=== PATIENT | female | born 1980 | race Two or more races ===

== ENCOUNTER 2025-07-22 21:11 | Emergency (ER) | payer MEDICAID, OTHER ==
[~2025-07-22] VITALS: Ht 167.6 cm; Wt 105.3 kg
--- NOTE | 2025-07-22 21:56 | ED.PDOC ---
Musculoskeletal HPI Comments 45-year-old female who came to ER for left foot pain. Patient has history of diabetes. She was having a pedicure, when she accidentally nicked her left great toe. Shortly afterwards noted pain and swelling and discoloration of the left great toe. No fever noted Chief Complaint: Lower Extremity Time Seen by MD: 21:55 Reviewed Notes: Nurses Notes Allergies: Coded Allergies: NO KNOWN ALLERGIES (Unverified , 07/22/25) Home Meds Active Scripts Mupirocin Calcium (Topical) (MUPIROCIN) 2 % Cre, 2 % EX BID for 10 Days, #100 CRE Prov:CHINO FRANZ MD 07/22/25 Sulfamethoxazole W/Trimethopri (Bactrim Ds Tablet) 1 Tab Tb, 1 TAB PO BID for 10 Days, #20 TAB Prov:CHINO FRANZ MD 07/22/25 Information Source: Patient Mode of Arrival: Ambulatory Location: Left Extremity Location: Great Toe Timing: Days Past Medical History PAST MEDICAL HISTORY: DM Surgical History: Denies all surgeries [employer] History: Denies all [employer]MAN Hx Family History Family History: Reviewed,noncontributory to illness Social History Smoker: Non-Smoker Alcohol: Denies ETOH Use Drugs: Denies Drug Use Lives In: Home Constitutional: denies: chills, diaphoresis, fatigue, fever, malaise, sweats, weakness, others EENTM: denies: blurred vision, double vision, ear bleeding, ear discharge, ear drainage, ear pain, ear ringing, eye pain, eye redness, hearing loss, mouth pain, mouth swelling, nasal discharge, nose bleeding, nose congestion, nose pain, photophobia, tearing, throat pain, throat swelling, voice changes, others Respiratory: denies: cough, hemoptysis, orthopnea, SOB at rest, shortness of breath, SOB with excertion, stridor, wheezing, others Cardiovascular: denies: chest pain, dizzy spells, diaphoresis, Dyspnea on exe rtion, edema, irregular heart beat, left arm pain, lightheadedness, palpitations, PND, syncope, others Gastrointestinal: denies: abdomen distended, abdominal pain, blood streaked bowels, constipated, diarrhea, dysphagia, difficulty swallowing, hematemesis, melena, nausea, poor appetite, poor fluid intake, rectal bleeding, rectal pain, vomiting, others Genitourinary: denies: abnormal vagina bleeding, burning, dyspareunia, dysuria, flank pain, frequency, hematuria, incontinence, pain, , vagina discharge, urgency, others Neurological: denies: dizziness, fainting, headache, left sided numbness, left sided weakness, numbness, paresthesia, pre-existing deficit, right sided numbness, right sided weakness, seizure, speech problems, tingling, tremors, weakness, others Musculoskeletal: reports: others (Left great toe swelling and discoloration); denies: back pain, gout, joint pain, joint swelling, muscle pain, muscle stiffness, neck pain Integumetry: denies: bruises, change in color, change in hair/nails, dryness, laceration, lesions, lumps, rash, wounds, others Allergic/Immunocompromised: denies: Difficulty Healing, Frequent Infections, Hives, Itching, others Hematologic/Lymphatic: denies: anemia, blood clots, easy bleeding, easy bruising, swollen glands, others Endocrine: denies: excessive hunger, excessive sweating, excessive thirst, excessive urination, flushing, intolerance to cold, intolerance to heat, unexplained weight gain, unexplained weight loss, others Psychiatric: denies: anxiety, bipolar disorder, depression, hopeless, panic disorder, schizophrenia, sleepless, suicidal, others Physical Exam General Appearance: No Apparent Distress, Normal HEENT: Normal ENT Inspection, Pharynx Normal, TMs Normal Neck: Full Range of Motion, Non-Tender, Normal, Normal Inspection Respiratory: Chest Non-Tender, Lungs Clear, No Accessory Muscle Use, No Respiratory Distress, Normal Breath Sounds Cardiovascular: No Edema, No JVD, No Murmur, No Gallop, Normal Peripheral Pulses, Regular Rate/Rhythm Breast Exam: Deferred Gastrointestinal: No Organomegaly, Non Tender, No Pulsatile Mass, Normal Bowel Sounds, Soft Genitalia: Deferred Pelvic: Deferred Rectal: Deferred Extremities: No calf tenderness, Normal capillary refill, Normal inspection, Normal range of motion, Non-tender, No pedal edema, Swelling (Left great toe) Musculoskeletal : Apperance: Normal Neurologic: Alert, evaporator operator II-XII nml as Tested, No Motor Deficits, Normal Affect, Normal Mood, No Sensory Deficits Cerebellar Function: Normal Reflexes: Normal Skin: Dry, Normal Color, Warm Lymphatic: No Adenopathy Was a procedure done? Was a procedure done?: No Differential Diagnosis EXT Differential Diagnosis: Cellulitis, CHF, Gout, Septic, Arthritis Other Differential Diagnosis Diabetic foot X-Ray, Labs, Meds, VS Vital Signs Date Time Temp Pulse Resp B/P (MAP) Pulse Ox O2 Delivery O2 Flow Rate FiO2 07/22/25 22:00 98.1 76 18 159/85 (109) 100 98.1 07/22/25 22:00 76 18 100 Room Air* 0 21 07/22/25 21:13 98.0 79 16 158/98 99 98.0 Lab Test 07/22/25 22:00 Range/Units White Blood Count 7.2 4.4-10.8 10^3/uL Red Blood Count 4.27 4.0-5.20 10^6/uL Hemoglobin 12.8 12.2-16.2 g/dL Hematocrit 37.5 36.0-46.0 % Mean Corpuscular Volume 87.7 80.0-100.0 fL Mean Corpuscular Hemoglobin 30.0 28.0-32.0 pg Mean Corpuscular Hemoglobin Concent 34.2 32.0-36.0 g/dL Red Cell Distribution Width 13.3 11.8-14.3 % Platelet Count 332 140-450 10^3/uL Mean Platelet Volume 8.1 6.9-10.8 fL Neutrophils (%) (Auto) 57.5 37.0-80.0 % Lymphocytes (%) (Auto) 33.9 10.0-50.0 % Monocytes (%) (Auto) 5.2 0.0-12.0 % Eosinophils (%) (Auto) 1.9 0.0-7.0 % Basophils (%) (Auto) 1.5 0.0-2.0 % Neutrophils # (Auto) 4.1 1.6-8.6 10 ^3/uL Lymphocytes # (Auto) 2.4 0.4-5.4 10 ^3/uL Monocytes # (Auto) 0.4 0-1.3 10 ^3/uL Eosinophils # (Auto) 0.1 0-0.8 10 ^3/uL Basophils # (Auto) 0.1 0-0.2 10 ^3/uL Nucleated Red Blood Cells 0.0 % Sodium Level 141 136-145 mmol/L Potassium Level 3.4 L 3.5-5.1 mmol/L Chloride Level 107 98-107 mmol/L Carbon Dioxide Level 26 20-31 mmol/L Anion Gap 8 5-15 Blood Urea Nitrogen 11 9-23 mg/dL Creatinine 0.68 0.550-1.02 mg/dL Glomerular Filtration Rate Calc 111 >90 mL/min BUN/Creatinine Ratio 16.2 10.0-20.0 Serum Glucose 155 H 74-106 mg/dL Lactic Acid Level 1.2 0.4-2.0 mmol/L Calcium Level 9.2 8.7-10.4 mg/dL Current Medications Medications (Trade) Dose Ordered Sig/Christopher Route Start Time Stop Time Status Last Admin Cefazolin Sodium 50 ml @ 100 mls/hr ONCE ONCE IV 07/22/25 22:00 07/22/25 22:29 DC 07/22/25 22:21 Trimethoprim/ Sulfamethoxazole (Bactrim Ds Tablet) 1 tab ONCE ONCE PO 07/22/25 22:00 07/22/25 22:01 DC 07/22/25 22:08 Time of 1ST Reevaluation: 21:48 Reevaluation 1ST: Unchanged Patient Education/Counseling: Diagnosis, Treatment Family Education/Counseling: No Family Present Sepsis Sepsis Reasesment Focused Exam Orders: Laboratory Tests 07/22/25 22:00: Lactic Acid Level 1.2 Departure 1 Departure Time of Disposition: 23:45 Impression: Primary Impression: Cellulitis of great toe, left Disposition: 01 HOME / SELF CARE / HOMELESS Condition: Stable e-Prescriptions Mupirocin Calcium (Topical) (MUPIROCIN) 2 % Cre 2 % EX BID for 10 Days, #100 CRE Prov: CHINO FRANZ MD 07/22/25 Sulfamethoxazole W/Trimethopri (Bactrim Ds Tablet) 1 Tab Tb 1 TAB PO BID for 10 Days, #20 TAB Prov: CHINO FRANZ MD 07/22/25 Discharged With: Self Critical Care Note Critical Care Time?: No Stability Stability form required: No Heart Score Heart Score: Heart Score Response (Comments) Value History N/A 0 EKG N/A 0 Age N/A 0 Risk Factors N/A 0 Troponin N/A 0 Total 0 I personally scribed for CHINO FRANZ MD ([email or web address]) on 07/22/25 at 21:56. Electronically submitted by Thomas Rosas ([email or web address]). CHINO FRANZ MD Jul 22, 2025 21:56
[2025-07-22 22:00] VITALS: BP 159/85; PULSE 76; RESP 18; TEMP 98.1; O2SAT 100
[2025-07-22] MEDS: SULFAMETHOX W/TRIMETH(800/160MG) DS TAB PO ONE (22:08)
[2025-07-22 22:17] LABS: Hematocrit 37.5 % (36.0-46.0); Hemoglobin 12.8 g/dL (12.2-16.2); Mean Corpuscular Hemoglobin 30.0 pg (28.0-32.0); Mean Corpuscular Volume 87.7 fL (80.0-100.0); Nucleated Red Blood Cells % 0.0 %
[2025-07-22] MEDS: ceFAZolin 1GM/50ML 50 ML IV ONE (22:21)
[2025-07-22 22:22] LABS: Sodium 141 mmol/L (136-145)
[2025-07-22 22:23] LABS: Anion Gap 8 (5-15); Carbon Dioxide 26 mmol/L (20-31); Chloride 107 mmol/L (98-107); Potassium 3.4 mmol/L (3.5-5.1)
[2025-07-22 22:24] LABS: Calcium 9.2 mg/dL (8.7-10.4)
[2025-07-22 22:28] LABS: BUN/Creatinine Ratio 16.2 (10.0-20.0); Blood Urea Nitrogen 11 mg/dL (9-23)
[2025-07-22 22:29] LABS: Glucose 155 mg/dL (74-106)
[2025-07-22] MEDS ORDERED: BACDST PO (23:18)
[2025-07-22] MEDS ORDERED: MUPI2CRE17 EX (23:18)
== END 2025-07-22 23:29 | disposition home or self-care (01) ==
LOC: ER 21:11
DX: L03.032 Cellulitis of left toe (principal); E11.9 Type 2 diabetes mellitus without complications; Z79.899 Other long term (current) drug therapy
CPT/HCPCS: 36415; 80048; 83605; 85025; 87040; 96365; 99284; J0690